=== PATIENT | male | born 1970 | race Caucasian/White ===

== ENCOUNTER 2018-04-07 14:31 | Inpatient (IN) ==
[2018-04-07] MEDS ORDERED: ONDANSETRON 4 MG/2 ML VIAL IV PRN (14:37)
[2018-04-07] MEDS ORDERED: DOCUSATE SODIUM 100 MG CAPSULE PO PRN (14:37)
[2018-04-07] MEDS ORDERED: VANCOMYCIN INJ 2,500 MG in SODIUM CHLORIDE 0.9% 500 ML IV ONE (18:00)
[2018-04-07 18:02] LABS: Basophils # 0.1 10*3/uL (0.0-0.2); Basophils % 0.5 % (0.0-0.8); Eosinophils # 0.2 10*3/uL (0.0-0.87); Eosinophils % 1.5 % (0.00-10.9); Hematocrit 42.2 VOL% (42.0-52.0); Hemoglobin 13.3 GM/DL (14.0-18.0); Immature Granulocytes % 0.4 %; Immature Granulocytes Absolute 0.04 #; Lymphocytes # 2.7 10*3/uL (1.4-4.0); Mean Corpuscular HGB Conc 31.5 GM/DL (32-36); Mean Corpuscular Hemoglobin 27 PG (27-34); Mean Corpuscular Volume 85.3 FL (87-102); Mean Platelet Volume 11.3 FL (9.6-12.0); Monocytes # 1.1 10*3/uL (0.11-0.8); Monocytes % 10.4 % (1.7-12.7); Neutrophils # 6.7 10*3/uL (1.4-7.4); Neutrophils % 62.2 % (38.7-73.9); Platelet Count 233 T/CUMM (130-400); Red Blood Count 4.95 MC/CUMM (3.8-5.5); White Blood Count 10.8 T/CUMM (4-12)
[2018-04-07] MEDS: POTASSIUM CHLORIDE INJ 10 MEQ in SODIUM CHLORIDE 0.9% 1,000 ML IV SCH (18:13)
[2018-04-07 18:20] LABS: Calcium 9.2 MG/DL (8.5-10.1); Osmolality,Calculated 278.5 MOS/KG (273-304); Potassium 3.3 MMOL/L (3.5-5.1); Total Protein 8.2 G/DL (6.4-8.3)
[2018-04-07] MEDS: ENOXAPARIN 40 MG/0.4 ML SYRINGE SUBCUT SCH (20:16)
[2018-04-08] MEDS: VANCOMYCIN INJ 2,500 MG in SODIUM CHLORIDE 0.9% 500 ML IV SCH ×2 (05:40→16:59)
[2018-04-08] MEDS: ACETAMINOPHEN 325 MG TABLET PO PRN (06:41)
[2018-04-08] MEDS: POTASSIUM CHLORIDE INJ 10 MEQ in SODIUM CHLORIDE 0.9% 1,000 ML IV SCH ×2 (06:55→20:35)
[2018-04-08] MEDS: PANTOPRAZOLE 40 MG TABLET PO SCH (08:54)
[2018-04-08] MEDS: ASPIRIN EC 81 MG TABLET PO SCH (08:54)
[2018-04-08] MEDS: ENOXAPARIN 40 MG/0.4 ML SYRINGE SUBCUT SCH (20:32)
[2018-04-09] MEDS: VANCOMYCIN INJ 2,500 MG in SODIUM CHLORIDE 0.9% 500 ML IV SCH (05:35)
[2018-04-09 05:58] LABS: Basophils % 0.5 % (0.0-0.8); Eosinophils # 0.3 10*3/uL (0.0-0.87); Eosinophils % 3.7 % (0.00-10.9); Hematocrit 36.4 VOL% (42.0-52.0); Hemoglobin 11.8 GM/DL (14.0-18.0); Immature Granulocytes % 0.5 %; Immature Granulocytes Absolute 0.04 #; Lymphocytes # 1.7 10*3/uL (1.4-4.0); Lymphocytes % 22.4 % (21.2-54.2); Mean Corpuscular HGB Conc 32.4 GM/DL (32-36); Mean Corpuscular Hemoglobin 27 PG (27-34); Mean Corpuscular Volume 84.7 FL (87-102); Mean Platelet Volume 10.8 FL (9.6-12.0); Monocytes % 12.2 % (1.7-12.7); Neutrophils # 4.7 10*3/uL (1.4-7.4); Neutrophils % 60.7 % (38.7-73.9); Platelet Count 194 T/CUMM (130-400); Red Cell Distribution Width 13.8 % (9.3-17.3); White Blood Count 7.8 T/CUMM (4-12)
[2018-04-09 06:05] LABS: Calcium 8.2 MG/DL (8.5-10.1); Osmolality,Calculated 279.3 MOS/KG (273-304); Potassium 3.7 MMOL/L (3.5-5.1)
[2018-04-09] MEDS: KETOROLAC 15 MG/1 ML VIAL IV SCH ×2 (09:09→20:27)
[2018-04-09] MEDS: PANTOPRAZOLE 40 MG TABLET PO SCH (09:13)
[2018-04-09] MEDS: ASPIRIN EC 81 MG TABLET PO SCH (09:13)
[2018-04-09] MEDS: cefTRIAXone 2,000 MG in SYRINGE 1 EACH IV SCH (09:13)
[2018-04-09] MEDS: ACETAMINOPHEN 325 MG TABLET PO PRN ×2 (14:33→21:44)
[2018-04-09] MEDS: VANCOMYCIN INJ 1,750 MG in SODIUM CHLORIDE 0.9% 500 ML IV SCH ×2 (14:34→21:38)
[2018-04-09] MEDS: ENOXAPARIN 40 MG/0.4 ML SYRINGE SUBCUT SCH (20:28)
[2018-04-10] MEDS: POTASSIUM CHLORIDE INJ 10 MEQ in SODIUM CHLORIDE 0.9% 1,000 ML IV SCH ×2 (01:18→14:44)
[2018-04-10] MEDS: VANCOMYCIN INJ 1,750 MG in SODIUM CHLORIDE 0.9% 500 ML IV SCH ×2 (05:00→14:45)
[2018-04-10] MEDS: PANTOPRAZOLE 40 MG TABLET PO SCH (09:56)
[2018-04-10] MEDS: cefTRIAXone 2,000 MG in SYRINGE 1 EACH IV SCH (09:56)
[2018-04-10] MEDS: ASPIRIN EC 81 MG TABLET PO SCH (09:56)
[2018-04-10] MEDS: KETOROLAC 15 MG/1 ML VIAL IV SCH (10:15)
[2018-04-10] MEDS: ENOXAPARIN 40 MG/0.4 ML SYRINGE SUBCUT SCH (20:37)
[2018-04-11] MEDS: VANCOMYCIN INJ 1,750 MG in SODIUM CHLORIDE 0.9% 500 ML IV SCH ×3 (01:54→15:26)
[2018-04-11 05:30] LABS: Basophils # 0.1 10*3/uL (0.0-0.2); Basophils % 0.6 % (0.0-0.8); Eosinophils # 0.6 10*3/uL (0.0-0.87); Eosinophils % 6.9 % (0.00-10.9); Hematocrit 35.8 VOL% (42.0-52.0); Hemoglobin 11.4 GM/DL (14.0-18.0); Immature Granulocytes % 0.5 %; Immature Granulocytes Absolute 0.04 #; Lymphocytes # 1.5 10*3/uL (1.4-4.0); Lymphocytes % 17.9 % (21.2-54.2); Mean Corpuscular HGB Conc 31.8 GM/DL (32-36); Mean Corpuscular Hemoglobin 27 PG (27-34); Mean Corpuscular Volume 84.4 FL (87-102); Mean Platelet Volume 11.2 FL (9.6-12.0); Monocytes # 0.7 10*3/uL (0.11-0.8); Monocytes % 8.6 % (1.7-12.7); Neutrophils # 5.5 10*3/uL (1.4-7.4); Neutrophils % 65.5 % (38.7-73.9); Platelet Count 222 T/CUMM (130-400); Red Blood Count 4.24 MC/CUMM (3.8-5.5); Red Cell Distribution Width 13.8 % (9.3-17.3); White Blood Count 8.4 T/CUMM (4-12)
[2018-04-11 05:53] LABS: Osmolality,Calculated 278.3 MOS/KG (273-304); Potassium 3.6 MMOL/L (3.5-5.1)
[2018-04-11] MEDS ORDERED: IBUPROFEN 800 MG TABLET PO PRN (08:45)
[2018-04-11] MEDS: cefTRIAXone 2,000 MG in SYRINGE 1 EACH IV SCH (09:08)
[2018-04-11] MEDS: ASPIRIN EC 81 MG TABLET PO SCH (09:08)
[2018-04-11] MEDS: PANTOPRAZOLE 40 MG TABLET PO SCH (09:29)
[2018-04-11] MEDS: FLUTICASONE 50 MCG NASAL SPRAY 16 GM BOTTLE BOTH NARES SCH (09:58)
[2018-04-11] MEDS: POTASSIUM CHLORIDE INJ 10 MEQ in SODIUM CHLORIDE 0.9% 1,000 ML IV SCH (10:41)
[2018-04-11] MEDS: ENOXAPARIN 40 MG/0.4 ML SYRINGE SUBCUT SCH (20:36)
[2018-04-12] MEDS: POTASSIUM CHLORIDE INJ 10 MEQ in SODIUM CHLORIDE 0.9% 1,000 ML IV SCH ×2 (01:00→21:30)
[2018-04-12] MEDS: VANCOMYCIN INJ 1,750 MG in SODIUM CHLORIDE 0.9% 500 ML IV SCH ×2 (03:15→15:18)
[2018-04-12] MEDS: FLUTICASONE 50 MCG NASAL SPRAY 16 GM BOTTLE BOTH NARES SCH (08:59)
[2018-04-12] MEDS: PANTOPRAZOLE 40 MG TABLET PO SCH (08:59)
[2018-04-12] MEDS: cefTRIAXone 2,000 MG in SYRINGE 1 EACH IV SCH (08:59)
[2018-04-12] MEDS: ASPIRIN EC 81 MG TABLET PO SCH (09:00)
[2018-04-12] MEDS ORDERED: KETOROLAC 15 MG/1 ML VIAL IV ONE (18:04)
[2018-04-12] MEDS: ENOXAPARIN 40 MG/0.4 ML SYRINGE SUBCUT SCH (21:43)
[2018-04-13] MEDS: VANCOMYCIN INJ 1,750 MG in SODIUM CHLORIDE 0.9% 500 ML IV SCH (02:36)
[2018-04-13] MEDS: cefTRIAXone 2,000 MG in SYRINGE 1 EACH IV SCH (09:19)
[2018-04-13] MEDS: ASPIRIN EC 81 MG TABLET PO SCH (09:20)
[2018-04-13] MEDS: PANTOPRAZOLE 40 MG TABLET PO SCH (09:20)
[2018-04-13] MEDS: FLUTICASONE 50 MCG NASAL SPRAY 16 GM BOTTLE BOTH NARES SCH (09:20)
[2018-04-13 09:59] VITALS: BP 138/80
== END 2018-04-13 11:34 | disposition home or self-care (01) | DRG 603 ==
LOC: INTOOBSV 15:08 → N.5E 15:08
PROVIDERS: ADMIT Family Medicine; ATTEND Family Medicine